=== PATIENT | male | born 1970 | race African-American/Black ===

== ENCOUNTER 2024-09-12 10:51 | Emergency (ER) | payer MEDICAID, OTHER ==
[~2024-09-12] VITALS: Ht 177.8 cm; Wt 90.0 kg
[2024-09-12 11:00] VITALS: O2SAT 98
[2024-09-12 13:12] VITALS: BP 135/91; PULSE 68; RESP 16; TEMP 37; O2SAT 99
== END 2024-09-12 13:17 | disposition home or self-care (01) ==
LOC: ER 10:51
DX: S09.8XXA Other specified injuries of head, initial encounter (principal); E11.9 Type 2 diabetes mellitus without complications; I10 Essential (primary) hypertension; Z86.73 Personal history of transient ischemic attack (TIA), and cerebral infarction without residual deficits; W01.0XXA Fall on same level from slipping, tripping and stumbling without subsequent striking against object, initial encounter; Y93.89 Activity, other specified; Y92.89 Other specified places as the place of occurrence of the external cause; Y99.8 Other external cause status
CPT/HCPCS: 73030; 99284